=== PATIENT | female | born 1980 | race Caucasian/White ===

== ENCOUNTER 2023-01-07 03:31 | Outpatient (CLI) | payer BC, OTHER | END 2023-01-07 03:32 | disposition short-term general hospital (02) | LOC: EMS 03:31 | DX: R55 Syncope and collapse (principal); S00.01XA Abrasion of scalp, initial encounter; S31.010A Laceration without foreign body of lower back and pelvis without penetration into retroperitoneum, initial encounter; S71.112A Laceration without foreign body, left thigh, initial encounter; W18.39XA Other fall on same level, initial encounter; Y92.009 Unspecified place in unspecified non-institutional (private) residence as the place of occurrence of the external cause | CPT/HCPCS: A0425; A0427 ==